=== PATIENT | female | born 1980 | race Caucasian/White ===

== ENCOUNTER → 2017-06-15 | Outpatient (CLI) | payer BC ==
--- NOTE | 2017-06-15 12:00 | RAD ---
EXAM DESCRIPTION: Foot,Left 3 Views CLINICAL HISTORY: 36 years Female, FOOT PAIN COMPARISON: None. FINDINGS: 3 views of the left foot show no acute fracture or malalignment. No radiopaque foreign body or soft tissue gas. Incidentally noted is an accessory ossicle lateral to the calcaneocuboid joint. IMPRESSION: Negative exam. Electronically signed by: Ted Mendoza MD 06/15/2017 11:58 AM [facility]
== END | disposition home or self-care (01) ==
LOC: LAB.O 11:31
PROVIDERS: ATTEND Nurse Practitioner Family
DX: M79.672 Pain in left foot (principal)